=== PATIENT | female | born 1995 | race Caucasian/White ===

== ENCOUNTER 2017-08-04 19:12 | Emergency (ER) | payer SELFPAY ==
[~2017-08-04] VITALS: Ht 165.1 cm; Wt 63.5 kg
[2017-08-04 19:21] VITALS: BP 144/74
[2017-08-04] MEDS ORDERED: HYDR-971 PO (19:51)
--- NOTE | 2017-08-04 19:54 | PHYS DOC ---
General Chief Complaint: DENTAL PROBLEM Stated Complaint: POST OP DENTAL PAIN Time Seen by MD: 19:20 Source: patient Exam Limitations: no limitations Problems: History of Present Illness Initial Comments Patient is a 21-year-old female who comes to the ED complaining of postoperative dental pain. Patient states that on Saturday (4 days ago) she underwent wisdom teeth removal. She says that there was infection in the left lower, and the procedure was more difficult than initially thought. She's been taking clindamycin, ibuprofen, and Denton 5 mg. She states that she ran out of Denton earlier today and cannot control the pain with Tylenol or ibuprofen. No new or worsening symptoms no fever chills sweats or body aches. Timing/Duration: other Severity: severe Location: dental Prearrival Treatment: over the counter meds, prescription meds Modifying Factors: improves with other Associated Symptoms: tooth pain Allergies: Coded Allergies: No Known Drug Allergies (Unverified , 08/04/17) Past Medical History Medical History: no pertinent history Surgical History: noncontributory Social History Smoker: cigarettes Alcohol: none Drugs: none Constitutional: denies chills, denies diaphoresis, denies fever Ears: denies dizziness, denies pain Nose: denies clots, denies congestion, denies epistaxis Mouth: see HPI Throat: denies pain, denies discharge, denies neck stiffness, denies painful swallowing, denies difficulty with fluids Respiratory: denies cough, denies shortness of breath Cardiovascular: denies chest pain, denies palpitations Gastrointestinal: denies diarrhea, denies nausea, denies vomiting Musculoskeletal: denies back pain, denies joint pain, denies neck pain Neurological: denies headache, denies numbness, denies paresthesia Physical Exam General Appearance: WD/WN, no apparent distress Eyes: bilateral eye normal inspection, bilateral eye PERRL, bilateral eye EOMI Ears: bilateral ear auricle normal, bilateral ear canal normal, bilateral ear TM normal Nose: normal inspection Mouth/Throat: other (minimal left lower jaw swelling, intraorally there is no active bleeding or purulence no bony tenderness) Neck: non-tender, full range of motion, supple Cardiovascular/Respiratory: normal peripheral pulses, no respiratory distress Neurologic/Psychiatric: degreasing solution mixer II-XII nml as tested, no motor/sensory deficits, alert, normal mood/affect, oriented x 3 Skin: normal color, warm/dry Orders, Labs, Meds No indication for further evaluation. Patient continues to take her antibiotics and has run out of pain medications leaving for vacation tomorrow and is anxious that her pain would not be controlled. Departure Time of Disposition: 19:53 Disposition: 01 HOME, SELF-CARE Diagnosis: postoperative dental pain Condition: GOOD Patient Instructions: Pain Relief Preoperatively and Postoperatively Additional Instructions: Please review the patient education materials given by ED staff. Continue current medications, take all medications with food. Aggressive hydration with Gatorade or water. Prescription: Denton 5 mg quantity 15 Follow-up with a dentist this week if no improvement. Return to ED with new or changing symptoms. ZEYAD ASHER DO Aug 04, 2017 19:54
[2017-08-04] MEDS ORDERED: HYDROcodone/APAP 5/325MG 1 TAB TABLET PO ONE (20:15)
== END 2017-08-04 20:05 | disposition home or self-care (01) ==
LOC: ER 19:12
DX: G89.18 Other acute postprocedural pain (principal); K08.89 Other specified disorders of teeth and supporting structures; F17.210 Nicotine dependence, cigarettes, uncomplicated; Z98.818 Other dental procedure status
CPT/HCPCS: 99283

== ENCOUNTER 2018-08-08 13:47 | Emergency (ER) | payer SELFPAY ==
[~2018-08-08] VITALS: Ht 166.4 cm; Wt 70.0 kg
[~2018-08-08 13:47] MED LIST: HYDR-3165 PO
[2018-08-08 14:54] LABS: BACTERIA,URINE FEW /HPF (0-FEW); BILIRUBIN,URINE NEG (NEG); CLARITY,URINE CLOUDY; COLOR,URINE YELLOW; GLUCOSE,URINE NEG (NEG); NITRITE,URINE NEG (NEG); RBC,URINE RARE /HPF (0-2); SQUAMOUS EPITHELIAL CELL,UR OCC /LPF; UROBILINOGEN,URINE 1 mg/dL (0.2 mg/dL)
--- NOTE | 2018-08-08 15:21 | PHYS DOC ---
Past History Past Medical History: No Pertinent History Past Surgical History: Other Smoking: Cigarettes Alcohol Use: None Drug Use: None Adult General Chief Complaint Chief Complaint: abdominal pain [facility] [employer] [facility] HPI Patient is a 22 year old female who presents with draining of lower abdominal pain for 2 weeks as a constant and sharp pain without radiation and rated her pain 7/10. Patient complaining of few episode of nausea without vomiting. Patient denies urinary symptoms, diarrhea, constipation, fever and chills. Patient states her LMP was on July 20 as a normal menstruation for 7 days but had a couple days of episodes of spotting while wiping herself after finishing her menstruation. Patient also complaining of clear vaginal discharge after her bleeding was stopped. Patient states she had 6 home test with 2 positive . Patient states she has history of ovarian cyst and concern for possible ruptured ovarian cyst for STD or . Patient denies having any new sexual partner and states she is using condoms. Review of Systems Review of Systems Constitutional: Denies fever or chills [] Eyes: Denies change in visual acuity, redness, or eye pain [] HENT: Denies nasal congestion or sore throat [] Respiratory: Denies cough or shortness of breath [] Cardiovascular: No additional information not addressed in HPI [] GI: Reports abdominal pain, nausea, denies vomiting, bloody stools or diarrhea [ ] : Denies dysuria or hematuria [] Musculoskeletal: Denies back pain or joint pain [] Integument: Denies rash or skin lesions [] Neurologic: Denies headache, focal weakness or sensory changes [] Endocrine: Denies polyuria or polydipsia [] All other systems were reviewed and found to be within normal limits, except as documented in this note. Allergies Allergies Allergies Coded Allergies Type Severity Reaction Last Updated Verified No Known Drug Allergies 08/04/17 No Physical Exam Physical Exam Constitutional: Well developed, well nourished, no acute distress, non-toxic appearance. [] HENT: Normocephalic, atraumatic, oropharynx moist. Eyes: PERRLA, EOMI, conjunctiva normal, no discharge. [] Neck: Normal range of motion, no tenderness, supple, no stridor. [] Cardiovascular:Heart rate regular rhythm, no murmur [] Lungs & Thorax: Bilateral breath sounds clear to auscultation [] Abdomen: Bowel sounds normal, soft, no tenderness, no masses, no pulsatile masses, patient refuses vaginal exam. [] Skin: Warm, dry, no erythema, no rash. [] Back: No tenderness, no CVA tenderness. [] Extremities: No tenderness, no cyanosis, no clubbing, ROM intact, no edema. [] Neurologic: Alert and oriented X 3, normal motor function, normal sensory function, no focal deficits noted. [] Psychologic: Affect normal, judgement normal, mood normal. [] Current Patient Data Vital Signs Vital Signs Date Time Temp Pulse Resp B/P (MAP) Pulse Ox O2 Delivery O2 Flow Rate FiO2 08/08/18 13:47 98.2 78 18 100 Room Air Lab Results Laboratory Tests Test 08/08/18 14:32 08/08/18 14:36 Urine Collection Type Unknown Urine Color Yellow Urine Clarity Cloudy Urine pH 5.5 Urine Specific [place] >=1.030 Urine Protein 30 mg/dl (NEG-TRACE) Urine Glucose (UA) Neg mg/dL (NEG) Urine Ketones (Stick) >=160 mg/dL (NEG) Urine Blood Neg (NEG) Urine Nitrite Neg (NEG) Urine Bilirubin Neg (NEG) Urine Urobilinogen Dipstick 1 mg/dL (0.2 mg/dL) Urine Leukocyte Esterase Small (NEG) Urine RBC Rare /HPF (0-2) Urine WBC 11-20 /HPF (0-4) Urine Squamous Epithelial Cells Occ /LPF Urine Bacteria Few /HPF (0-FEW) Urine Mucus Mod /LPF POC Urine HCG, Qualitative hcg positive (Negative) EKG EKG [] Radiology/Procedures Radiology/Procedures [address] [address] IMAGING REPORT Signed PATIENT: CHECO RIVAS ACCOUNT: [id number] : 1995 LOCATION: ER AGE: 22 SEX: F EXAM STATUS: REG ER ORD. PHYSICIAN: JORGE VALENZUELA MD REASON: abdominal pain in PROCEDURE: OB <14 WKS W/TV Obstetrical ultrasound, 08/08/2018: History: Pain and bleeding Transabdominal and transvaginal scans were obtained. The uterus contains a single gestational sac. The gestational sac contains a yolk sac and a pole demonstrating a crown-rump length of 8 mm. This suggests a gestational age of 6-7 weeks yielding a sonographic EDC of 03/28/2019. cardiac activity is present with a heart rate of 123 bpm. There is a fluid collection adjacent to the gestational sac within the central uterine cavity compatible with a subchorionic hemorrhage. It measures approximately 4 x 1 cm in greatest dimensions. The ovaries are of normal size. Blood flow is present in both ovaries. No adnexal mass is seen. No free fluid is evident in the pelvis. IMPRESSION: 1. Single viable intrauterine fetus of 6-7 weeks gestational age. 2. Small subchorionic hemorrhage DICTATED AND SIGNED BY: GERSON KAPLAN MD DATE: 08/08/18 7950 CC: JORGE VALENZUELA MD; PCP,NO ~ Course & Med Decision Making Course & Med Decision Making Pertinent Labs and Imaging studies reviewed. (See chart for details) Evaluation of patient in ER showed 22-year-old female patient with complaining of lower abdominal pain for 2 weeks and vaginal discharge patient had positive urine test with hCG of 25,000. Ultrasound showed intrauterine at 6-7 weeks of gestation. Patient instructed to follow-up with OB/ [facility] on-call. Labs showed UTI and prescription for Keflex was given. Dragon Disclaimer Dragon Disclaimer This electronic medical record was generated, in whole or in part, using a voice recognition dictation system. Departure Departure: Impression: Primary Impression: Positive test Additional Impressions: Abdominal pain in Urinary tract infection during Tobacco abuse Tobacco abuse counseling Hyperemesis gravidarum Disposition: HOME, SELF-CARE (at 1634) Condition: STABLE Referrals: PCP,NO (PCP) Patient Instructions: ABCs of , Abdominal Pain During , Diet - Hyperemesis Gravidarum, Hyperemesis Gravidarum, - Urinary Tract Infection, Smoking Cessation, Tips For Success Additional Instructions: Follow-up with on-call AUDOGRAPH OPERATOR Dr Brar, call [phone] to make an appointment in 2 or 3 days Drink plenty of liquids Follow-up with your primary care physician in 3-5 days Return to ER if not getting better Scripts Ondansetron Hcl (ZOFRAN) 4 Mg Tablet 1 TAB PO Q6HRS for nausea and vomiting, #12 TAB Prov: JORGE VALENZUELA MD 08/08/18 Cephalexin (KEFLEX) 500 Mg Capsule 2 CAP PO Q12HR for infection, #28 CAP Prov: JORGE VALENUZELA MD 08/08/18 Problem Qualifiers JORGE VALENZUELA MD Aug 08, 2018 15:21
--- NOTE | 2018-08-08 16:02 | RAD ---
Obstetrical ultrasound, 08/08/2018: History: Pain and bleeding Transabdominal and transvaginal scans were obtained. The uterus contains a single gestational sac. The gestational sac contains a yolk sac and a pole demonstrating a crown-rump length of 8 mm. This suggests a gestational age of 6-7 weeks yielding a sonographic EDC of 03/28/2019. cardiac activity is present with a heart rate of 123 bpm. There is a fluid collection adjacent to the gestational sac within the central uterine cavity compatible with a subchorionic hemorrhage. It measures approximately 4 x 1 cm in greatest dimensions. The ovaries are of normal size. Blood flow is present in both ovaries. No adnexal mass is seen. No free fluid is evident in the pelvis. IMPRESSION: 1. Single viable intrauterine fetus of 6-7 weeks gestational age. 2. Small subchorionic hemorrhage
[2018-08-08] MEDS ORDERED: CEPH-264 PO (16:37)
[2018-08-08] MEDS ORDERED: ONDA4TAB7 PO (16:46)
[2018-08-08 17:18] VITALS: BP 150/77
== END 2018-08-08 17:18 | disposition home or self-care (01) ==
LOC: ER 13:47
DX: Z32.01 Encounter for pregnancy test, result positive (principal); O23.41 Unspecified infection of urinary tract in pregnancy, first trimester; O21.0 Mild hyperemesis gravidarum; O20.8 Other hemorrhage in early pregnancy; O99.331 Smoking (tobacco) complicating pregnancy, first trimester; Z3A.01 Less than 8 weeks gestation of pregnancy; Z71.6 Tobacco abuse counseling
CPT/HCPCS: 36415; 76801; 76817; 81001; 81025; 84702; 87086; 99284-25

== ENCOUNTER 2018-08-29 10:28 | Emergency (ER) | payer SELFPAY ==
[~2018-08-29] VITALS: Ht 166.4 cm; Wt 70.0 kg
[~2018-08-29 10:28] MED LIST changes: +CEPH-264 PO; +ONDA4TAB7 PO
[2018-08-29] MEDS ORDERED: IV NORMAL SALINE 1,000ML 1,000 ML IV ONE (10:45)
--- NOTE | 2018-08-29 10:57 | PHYS DOC ---
Past History Past Medical History: Anemia Past Surgical History: Other Smoking: Cigarettes Alcohol Use: None Drug Use: None Adult General Chief Complaint Chief Complaint: VAGINAL BLEEDING HPI HPI 22-year-old female presents with vaginal bleeding. The patient was diagnosed as having a spontaneous 2 weeks ago. At that time, she was 5 weeks . She was given methotrexate about 10 days ago and has finished taking that medication. She had a day of cramping and expulsion of products on her second day of methotrexate. She is continued to have some bleeding since that time. She was told this could be normal. The patient presents today because she is a significant increase in her bleeding with multiple clots. She is going through to super Maxi pads in less than 30 minutes and having clots up to 15 cm long. She is feeling lightheaded and fatigued. She has had issues with anemia in the past. She denies shortness of breath or syncope. She denies fever or chills. Review of Systems Review of Systems Constitutional: Denies fever or chills [] Eyes: Denies change in visual acuity, redness, or eye pain [] HENT: Denies nasal congestion or sore throat [] Respiratory: Denies cough or shortness of breath [] Cardiovascular: No additional information not addressed in HPI [] GI: Denies abdominal pain, nausea, vomiting, bloody stools or diarrhea [] : Vaginal bleeding with clots[] Musculoskeletal: Denies back pain or joint pain [] Integument: Denies rash or skin lesions [] Neurologic: Denies headache, focal weakness or sensory changes [] Endocrine: Denies polyuria or polydipsia [] All other systems were reviewed and found to be within normal limits, except as documented in this note. Current Medications Current Medications Current Medications Medications (Trade) Dose Ordered Sig/Michael Start Time Stop Time Status Last Admin Dose Admin Sodium Chloride 1,000 ml @ 1,000 mls/hr 1X ONCE 08/29/18 10:45 08/29/18 11:44 Allergies Allergies Allergies Coded Allergies Type Severity Reaction Last Updated Verified No Known Drug Allergies 08/04/17 No Physical Exam Physical Exam Constitutional: Well developed, well nourished, no acute distress, pale, non- toxic appearance. [] HENT: Normocephalic, atraumatic, bilateral external ears normal, oropharynx moist, no oral exudates, nose normal. [] Eyes: PERRLA, EOMI, conjunctiva normal, no discharge. [] Neck: Normal range of motion, no tenderness, supple, no stridor. [] Cardiovascular:Heart rate regular rhythm, no murmur [] Lungs & Thorax: Bilateral breath sounds clear to auscultation [] Abdomen: Bowel sounds normal, soft, suprapubic tenderness, no masses, no pulsatile masses. [] Skin: Warm, dry, pale, no erythema, no rash. [] Back: No tenderness, no CVA tenderness. [] Extremities: No tenderness, no cyanosis, no clubbing, ROM intact, no edema. [] Neurologic: Alert and oriented X 3, normal motor function, normal sensory function, no focal deficits noted. [] Psychologic: Affect normal, judgement normal, mood normal. [] Current Patient Data Vital Signs Vital Signs Date Time Temp Pulse Resp B/P (MAP) Pulse Ox O2 Delivery O2 Flow Rate FiO2 08/29/18 10:40 97.9 114 16 100 Room Air EKG EKG [] Radiology/Procedures Radiology/Procedures [] Impressions: Pelvic ultrasound, 08/29/2018: HISTORY: Bleeding postabortion Transabdominal and transvaginal scans were obtained. The uterus is anteflexed. It measures 9.5 x 5.4 x 3.7 cm. The central uterine echo complex is thickened measuring 1.2 cm in AP diameter. It contains mildly heterogeneous material. No retained parts or gestational sac is seen. No significant color flow is seen within the intrauterine contents. The ovaries are of normal size. No adnexal mass is seen. No free fluid is evident in the pelvis. IMPRESSION: Small amount of retained heterogeneous material within the central uterine cavity. Electronically signed by: Sergio Pearson MD (08/29/2018 12:32 PM) [facility] DICTATED AND SIGNED BY: SERGIO PEARSON MD DATE: 08/29/18 1223 CC: DENNIS CHANG DO; PCP,NO Course & Med Decision Making Course & Med Decision Making Pertinent Labs and Imaging studies reviewed. (See chart for details) The patient's labs are significant for hemoglobin of 9.7. I have no previous for comparison. The patient's pelvic ultrasound does show some retained products in the uterus. There is no viable fetus. I discussed the case with Dr. Lloyd, MANUFACTURING ASSISTANT at [facility] and she has accepted the patient for transfer and likely D&C procedure. I discussed this with the patient and she is in agreement. She will go by ambulance. [] Dragon Disclaimer Dragon Disclaimer This electronic medical record was generated, in whole or in part, using a voice recognition dictation system. Departure Departure: Impression: Primary Impression: Retained products of conception after miscarriage Disposition: 02 XFER SHT-TRM HOSP Condition: STABLE Referrals: PCP,NO (PCP) DENNIS CHANG DO Aug 29, 2018 10:57
[2018-08-29] MEDS ORDERED: MORPHINE SULFATE 4 MG/ML DISP.SYRIN. IV ONE (11:15)
[2018-08-29] MEDS ORDERED: ONDANSETRON PF 4 MG/2 ML VIAL. IV ONE (11:15)
[2018-08-29 11:18] LABS: BASO % 1 % (0-3); EOS # 0.1 x10^3/uL (0.0-0.7); EOS % 2 % (0-3); HEMATOCRIT 28.7 % (36.0-47.0); HEMOGLOBIN 9.7 g/dL (12.0-15.5); LYMPH # 2.6 x10^3/uL (1.0-4.8); LYMPH % 39 % (24-48); MEAN CORPUSCULAR HEMOGLOBIN 31 pg (25-35); MEAN CORPUSCULAR HGB CONC 34 g/dL (31-37); MEAN CORPUSCULAR VOLUME 91 fL (79-100); MONO # 0.4 x10^3/uL (0.0-1.1); MONO % 7 % (0-9); NEUT # 3.5 x10^3uL (1.8-7.7); NEUT % 53 % (31-73); PLATELET COUNT 253 x10^3/uL (140-400); RED BLOOD COUNT 3.17 x10^6/uL (3.50-5.40); RED CELL DISTRIBUTION WIDTH 13.7 % (11.5-14.5); WHITE BLOOD COUNT 6.8 x10^3/uL (4.0-11.0)
[2018-08-29 11:23] LABS: ALBUMIN 3.5 g/dL (3.4-5.0); ALBUMIN/GLOBULIN RATIO 1.1 (1.0-1.7); CALCIUM 8.4 mg/dL (8.5-10.1); CREATININE 0.7 mg/dL (0.6-1.0); GFR 103.7; POTASSIUM 3.6 mmol/L (3.5-5.1); TOTAL BILIRUBIN 0.2 mg/dL (0.2-1.0); TOTAL PROTEIN 6.8 g/dL (6.4-8.2)
--- NOTE | 2018-08-29 12:36 | RAD ---
Pelvic ultrasound, 08/29/2018: HISTORY: Bleeding postabortion Transabdominal and transvaginal scans were obtained. The uterus is anteflexed. It measures 9.5 x 5.4 x 3.7 cm. The central uterine echo complex is thickened measuring 1.2 cm in AP diameter. It contains mildly heterogeneous material. No retained parts or gestational sac is seen. No significant color flow is seen within the intrauterine contents. The ovaries are of normal size. No adnexal mass is seen. No free fluid is evident in the pelvis. IMPRESSION: Small amount of retained heterogeneous material within the central uterine cavity. Electronically signed by: Sergio Pearson MD (08/29/2018 12:32 PM) [facility]
[2018-08-29] MEDS ORDERED: NICOTINE 21MG PATCH. TD ONE (13:31)
[2018-08-29] MEDS ORDERED: MORPHINE SULFATE 2 MG/ML DISP.SYRIN. IV ONE (14:00)
[2018-08-29 14:09] VITALS: BP 119/67
== END 2018-08-29 14:31 | disposition short-term general hospital (02) ==
LOC: ER 10:28
DX: O03.4 Incomplete spontaneous abortion without complication (principal); R42 Dizziness and giddiness; F17.210 Nicotine dependence, cigarettes, uncomplicated
CPT/HCPCS: 36415; 76830; 76856; 80053; 84702; 85025; 86900; 86901; 96361; 96374; 96375; 96376; 99285; J2270; J2405; J7030